=== PATIENT | male | born 1940 | race Caucasian/White ===

== ENCOUNTER 2017-09-28 09:15 | Outpatient (CLI) | payer MEDICARE, BC ==
[~2017-09-28 09:15] MED LIST: Iopamidol 370 76% 100 ML VIAL ONE
--- NOTE | 2017-09-29 12:51 | CT ---
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 Patient has a previous history of chemotherapy and radiation. Technique: Contrast enhanced CT images of the soft tissue neck obtained. FINDINGS: No evidence of deep cervical lymphadenopathy is seen. The pharyngeal mucosal space is unremarkable. The left parotid gland demonstrates no significant abnormalities. In the right parotid gland along th e posterior inferior aspect there is an approximately 8 x 8 mm area of contrast enhancement along the posterior aspect of the right parotid gland well lateral and posterior to the course of the facial n erve. This may represent a possible area of malignancy extending into the right parotid gland. The re st of the soft tissue neck CT is unremarkable. IMPRESSION: Subcentimeter right posterior inferior parotid area of abnormal enhancement, possibly due to focal sq uamous cell extension. POS: [facility]
== END 2017-09-28 09:16 | disposition home or self-care (01) ==
LOC: CT 09:15
PROVIDERS: ATTEND Radiology Radiation Oncology
DX: C44.329 Squamous cell carcinoma of skin of other parts of face (principal); R93.8 Abnormal findings on diagnostic imaging of other specified body structures
CPT/HCPCS: 70491; 82565

== ENCOUNTER 2018-11-10 10:30 | Outpatient (CLI) | payer MEDICARE, BC ==
--- NOTE | 2018-11-10 12:05 | CT ---
POSTCONTRAST SOFT TISSUE NECK CT: HISTORY: Right-sided swelling. History of skin cancer. Radiation. FINDINGS: Visualized brain parenchyma is unremarkable. Adequate aeration of the visualized paranasal sinuses. The aerodigestive tract is patent. No mucosal abnormality. Midline fatty raphae of the tongue is pr eserved. The patient is edentulous. Epiglottis has a normal caliber. Preepiglottic fat is preserved . There is no prevertebral soft tissue swelling. There are varying degrees of central canal stenosi s and neural foraminal narrowing on the basis of degenerative change. Evaluation is limited by techn ique. Stable exuberant osteophyte formation along the anterior aspect of C4, C5, C6, and C7. Visualized parotid and submandibular glands have appropriate attenuation. The thyroid gland is diminutive and unremarkable. Symmetric attenuation of sternocleidomastoid muscles. Grossly, the great vessels of the neck are patent. No evidence of high-grade stenosis. Evaluation i s limited by technique. There is no evidence of a soft tissue neck hematoma or lymphadenopathy. Upper mediastinum is unremarkable. There are chronic changes involving the right lung apex. Emphyse matous changes in the visualized lung apices are also noted. Atherosclerosis of a nonaneurysmal aorta. Previously noted abnormal enhancement along the posterior inferior aspect of the right parotid gland, extending to the dermis, is currently not appreciated. IMPRESSION: 1. No evidence of mass or lymphadenopathy in the right neck. 2. Presumed posttreatment changes with thickening and scarring in the right lung apex. POS: [facility]
== END 2018-11-10 10:31 | disposition home or self-care (01) ==
LOC: BICCT 10:30
PROVIDERS: ATTEND Otolaryngology Plastic Surgery within the Head & Neck
DX: R22.1 Localized swelling, mass and lump, neck (principal); J98.4 Other disorders of lung
CPT/HCPCS: 70491; 82565